=== PATIENT | female | born 1970 | race Caucasian/White ===

== ENCOUNTER 2025-08-06 22:05 | Emergency (ER) | payer OTHER ==
[~2025-08-06] VITALS: Ht 154.9 cm; Wt 70.9 kg
[~2025-08-06 22:05] MED LIST: AMOX-457 PO; ATOR40TA71 PO; LOSA-382 PO; METF-910 PO
[2025-08-07 00:09] LABS: PLATELET COUNT (AUTO) 282 K/uL (150-450); RED BLOOD CELL COUNT(AUTO) 4.87 MIL/uL (4.00-5.20); RED CELL DISTRIBUTION WIDTH 14.5 % (11.5-14.5); WHITE BLOOD COUNT (AUTO) 8.0 K/uL (4.5-11.0)
[2025-08-07 00:23] LABS: CALCIUM, TOTAL 8.8 mg/dL (8.8-10.5); CREATININE 0.51 mg/dL (0.60-1.30); GLOMERULAR FILTR. RATE CALC > 60 mL/min (>60); GLUCOSE,RANDOM 139 mg/dL (70-110); SODIUM SERUM 136 mmol/L (136-145); UREA NITROGEN, BLOOD 13 mg/dL (7-18)
[2025-08-07 01:09] VITALS: BP 124/75; PULSE 68; RESP 16; O2SAT 98
[2025-08-07] MEDS: ACETAMINOPHEN 500 MG TABLET PO ONE (01:35)
[2025-08-07] MEDS: METOCLOPRAMIDE HCL 10 MG TABLET PO ONE (01:35)
== END 2025-08-07 01:42 | disposition home or self-care (01) ==
LOC: EMS 22:07
DX: R04.0 Epistaxis (principal); E78.00 Pure hypercholesterolemia, unspecified; I10 Essential (primary) hypertension; Z79.899 Other long term (current) drug therapy
CPT/HCPCS: 80048; 85025; 93005; 99284